=== PATIENT | male | born 1940 | race Caucasian/White ===

== ENCOUNTER 2022-01-03 21:17 | Emergency (ER) | payer MEDICARE, OTHER ==
[2022-01-04 03:14] LABS: HEMOGLOBIN 16.3 gm/dl (14.0-17.5); RED BLOOD COUNT 5.26 M/UL (4.20-5.50)
== END 2022-01-04 05:38 | disposition home or self-care (01) ==
LOC: ER1 21:17
PROVIDERS: Family Medicine
DX: S82.831A Other fracture of upper and lower end of right fibula, initial encounter for closed fracture (principal); S01.01XA Laceration without foreign body of scalp, initial encounter; E11.9 Type 2 diabetes mellitus without complications; I10 Essential (primary) hypertension; W01.10XA Fall on same level from slipping, tripping and stumbling with subsequent striking against unspecified object, initial encounter; Y92.009 Unspecified place in unspecified non-institutional (private) residence as the place of occurrence of the external cause
CPT/HCPCS: 70450; 71045; 72125; 73502; 73630; 80053; 82550; 82553; 83874; 84484; 85025; 93005; 99284

== ENCOUNTER → 2022-01-26 | Outpatient (CLI) | payer MEDICARE, OTHER | LOC: KOH-I 01-21 13:00 | DX: R60.0 Localized edema (principal); S82.91XD Unspecified fracture of right lower leg, subsequent encounter for closed fracture with routine healing; W19.XXXD Unspecified fall, subsequent encounter | CPT/HCPCS: 93970 ==

== ENCOUNTER → 2022-02-03 | Outpatient (CLI) | payer MEDICARE, OTHER | LOC: KOH-I 13:18 | DX: S82.61XA Displaced fracture of lateral malleolus of right fibula, initial encounter for closed fracture (principal) | CPT/HCPCS: 73610 ==

== ENCOUNTER → 2022-03-07 | Outpatient (CLI) | payer MEDICARE, OTHER | LOC: KOH-I 13:03 | DX: S82.831A Other fracture of upper and lower end of right fibula, initial encounter for closed fracture (principal); X58.XXXA Exposure to other specified factors, initial encounter | CPT/HCPCS: 73610 ==

== ENCOUNTER 2022-04-02 12:04 | Inpatient (IN) | payer MEDICARE, OTHER ==
[~2022-04-02] VITALS: Ht 180.3 cm; Wt 103.9 kg
[2022-04-02] MEDS ORDERED: IBU800 MG PO (16:40)
[2022-04-02 18:18] LABS: HEMOGLOBIN 13.5 gm/dl (14.0-17.5); RED BLOOD COUNT 4.29 M/UL (4.20-5.50); WHITE BLOOD COUNT 17.3 K/UL (4.5-11.0)
[2022-04-03 04:39] LABS: HEMOGLOBIN 11.4 gm/dl (14.0-17.5); RED BLOOD COUNT 3.65 M/UL (4.20-5.50)
[2022-04-03] MEDS ORDERED: TRAMADOL HCL50 MG PO (11:40)
[2022-04-03] MEDS ORDERED: AMLODIPINE BESY10 MG PO (11:41)
[2022-04-03] MEDS ORDERED: CRESTOR5 MG PO (11:41)
[2022-04-03] MEDS ORDERED: VITAMIN D21250 MCG PO (11:41)
[2022-04-03] MEDS ORDERED: SPIRONOLACTONE25 MG PO (11:42)
[2022-04-03] MEDS ORDERED: LOSARTAN POTAS100 MG PO (11:42)
[2022-04-03] MEDS ORDERED: ASPIRIN EC81 MG PO (11:43)
[2022-04-03] MEDS ORDERED: GLIPIZIDE XL2.5 MG PO (11:44)
[2022-04-03] MEDS ORDERED: HYDROCHLOROTH12.5 MG PO (11:44)
[2022-04-04 06:15] LABS: HEMOGLOBIN 10.9 gm/dl (14.0-17.5); RED BLOOD COUNT 3.47 M/UL (4.20-5.50); WHITE BLOOD COUNT 10.2 K/UL (4.5-11.0)
[2022-04-04 06:38] LABS: BUN/CREATININE RATIO 23 (0-10)
[2022-04-05 06:10] LABS: HEMOGLOBIN 11.1 gm/dl (14.0-17.5); RED BLOOD COUNT 3.57 M/UL (4.20-5.50)
[2022-04-05 06:32] LABS: BUN/CREATININE RATIO 24 (0-10)
[2022-04-05] MEDS ORDERED: LOPRESSOR 25 MG25 MG PO (08:31)
[2022-04-05] MEDS ORDERED: LEVOFLOXACIN500 MG PO (08:31)
[2022-04-05] MEDS ORDERED: ELIQUIS 2.5 MG2.5 MG PO (08:31)
== END 2022-04-05 14:10 | disposition home health service (06) | DRG 308 ==
LOC: ER1 12:04 → M/S 22:04 → CDU 22:04 → M/S 04-03 16:45
PROVIDERS: Internal Medicine; Physician Assistant; ADMIT Internal Medicine
PROC: 2W3MX1Z Immobilization of Left Lower Extremity using Splint (ICD-10-PCS; 2022-04-02)
PROC: B24BZZZ Ultrasonography of Heart with Aorta (ICD-10-PCS; principal; 2022-04-03)
PROC: 8E0ZXY6 Isolation (ICD-10-PCS; 2022-04-03)
DX: I48.91 Unspecified atrial fibrillation (principal); G93.41 Metabolic encephalopathy; U07.1 COVID-19; J12.82 Pneumonia due to coronavirus disease 2019; E87.2 Acidosis; N30.00 Acute cystitis without hematuria; E78.5 Hyperlipidemia, unspecified; S82.491A Other fracture of shaft of right fibula, initial encounter for closed fracture; M10.9 Gout, unspecified; M51.36 Other intervertebral disc degeneration, lumbar region; I12.9 Hypertensive chronic kidney disease with stage 1 through stage 4 chronic kidney disease, or unspecified chronic kidney disease; E11.22 Type 2 diabetes mellitus with diabetic chronic kidney disease; N18.9 Chronic kidney disease, unspecified; W18.30XA Fall on same level, unspecified, initial encounter; E86.0 Dehydration; B96.20 Unspecified Escherichia coli [E. coli] as the cause of diseases classified elsewhere; S70.02XA Contusion of left hip, initial encounter; E11.621 Type 2 diabetes mellitus with foot ulcer; Z79.01 Long term (current) use of anticoagulants; Z79.82 Long term (current) use of aspirin; Z88.1 Allergy status to other antibiotic agents; Y92.091 Bathroom in other non-institutional residence as the place of occurrence of the external cause; Z82.49 Family history of ischemic heart disease and other diseases of the circulatory system; Z83.3 Family history of diabetes mellitus
CPT/HCPCS: ECHO; 36415; 70450; 71045; 73502; 73564; 73610; 73630; 80048; 80053; 81001; 82550; 82553; 82962; 83036; 83605; 83735; 84484; 85025; 85610; 87040; 87077; 87086; 87186; 93005; 93306; 96374; 96375; 97161; 97166; 97530; 97535; 99285; J0696; J1885; J1956; J7030; U0002

== ENCOUNTER → 2022-04-18 | Outpatient (CLI) | payer MEDICARE, OTHER ==
[~2022-04-18] MED LIST: AMLODIPINE BESY10 MG PO; ASPIRIN EC81 MG PO; CRESTOR5 MG PO; ELIQUIS 2.5 MG2.5 MG PO; GLIPIZIDE XL2.5 MG PO; HYDROCHLOROTH12.5 MG PO; IBU800 MG PO; LEVOFLOXACIN500 MG PO; LOPRESSOR 25 MG25 MG PO; LOSARTAN POTAS100 MG PO; SPIRONOLACTONE25 MG PO; TRAMADOL HCL50 MG PO; VITAMIN D21250 MCG PO
== END ==
LOC: KOH-I 14:54
DX: S82.891G Other fracture of right lower leg, subsequent encounter for closed fracture with delayed healing (principal); X58.XXXD Exposure to other specified factors, subsequent encounter
CPT/HCPCS: 73610

== ENCOUNTER → 2022-06-09 | Outpatient (CLI) | payer MEDICARE, OTHER | LOC: KOH-I 13:15 | DX: S82.61XK Displaced fracture of lateral malleolus of right fibula, subsequent encounter for closed fracture with nonunion (principal); M19.072 Primary osteoarthritis, left ankle and foot; M19.071 Primary osteoarthritis, right ankle and foot; X58.XXXD Exposure to other specified factors, subsequent encounter | CPT/HCPCS: 73610; 73630 ==

== ENCOUNTER → 2022-07-21 | Outpatient (CLI) | payer MEDICARE, OTHER | LOC: KOH-I 12:54 | DX: S82.831D Other fracture of upper and lower end of right fibula, subsequent encounter for closed fracture with routine healing (principal) | CPT/HCPCS: 73610 ==

== ENCOUNTER → 2022-08-25 | Outpatient (CLI) | payer MEDICARE, OTHER | LOC: KOH-I 10:40 | DX: Z53.8 Procedure and treatment not carried out for other reasons (principal) | CPT/HCPCS: 73610 ==